=== PATIENT | female | born 1970 | race Caucasian/White ===

== ENCOUNTER → 2019-03-06 07:59 | Outpatient (CLI) | payer OTHER, SELFPAY ==
[2019-03-06 09:34] LABS: Cholesterol 139 mg/dL (140-199); Glucose 83 mg/dL (70-100); HDL Cholesterol 65 mg/dL (40-60); LDL Cholesterol Calculated 59 mg/dL (<100); Triglycerides 77 mg/dL (35-150)
== END ==
PROVIDERS: Visit Provider Specialist
DX: Z13.220 Encounter for screening for lipoid disorders (principal); R63.1 Polydipsia
CPT/HCPCS: 36415; 80061; 82947

== ENCOUNTER → 2020-07-04 15:38 | Outpatient (CLI) | payer OTHER, SELFPAY ==
[2020-07-04 16:54] LABS: Appearance Urine UA CLOUDY; Bilirubin Urine UA NEGATIVE (NEGATIVE); Color Urine UA YELLOW; Glucose Urine UA NEGATIVE (Negative); Ketones Urine UA NEGATIVE (NEGATIVE); Leukocyte Esterase Urine UA 2+ (NEGATIVE); Nitrite Urine UA POSITIVE (Negative); Occult Blood Urine UA 3+ (Negative); Protein Urine UA 2+ (Negative); Specific Gravity Urine UA 1.025 (1.000-1.035); Urobilinogen Urine UA 0.2 E.U./dL (0.2)
[2020-07-04 17:15] LABS: RBC Urine 10-30/HPF (0-5/HPF); WBC Urine 30-100/HPF (0-5/HPF)
[2020-07-04 17:16] LABS: Bacteria Urine Moderate (10-30); Culture Indicated Urine Specimen Cultured
== END ==
PROVIDERS: Referring Provider Specialist; Visit Provider Specialist
DX: R30.0 Dysuria (principal)
CPT/HCPCS: 81001; 87077; 87086; 87186